=== PATIENT | female | born 1955 | race Caucasian/White ===

== ENCOUNTER 2019-03-08 09:29 | Outpatient (CLI) | payer MEDICAID | END 2019-03-08 23:59 | disposition home or self-care (01) | LOC: RAD 09:29 | PROVIDERS: ATTEND Psychiatry & Neurology Neurology | DX: R94.01 Abnormal electroencephalogram [EEG] (principal); Z87.891 Personal history of nicotine dependence | CPT/HCPCS: 95816 ==